=== PATIENT | male | born 1980 | race Hispanic/Latino ===

== ENCOUNTER 2021-01-27 18:48 | Emergency (ER) | payer OTHER ==
[2021-01-27] MEDS ORDERED: IBUPROFEN 400 MG TAB ONE (21:04)
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
[2021-01-27 23:05] VITALS: BP 129/88; TEMP 97.9; O2SAT 99
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
== END 2021-01-27 23:00 | disposition home or self-care (01) ==
LOC: ER 18:48
DX: S16.1XXA Strain of muscle, fascia and tendon at neck level, initial encounter (principal); S80.02XA Contusion of left knee, initial encounter; S80.01XA Contusion of right knee, initial encounter; V49.40XA Driver injured in collision with unspecified motor vehicles in traffic accident, initial encounter
CPT/HCPCS: 70450; 71045; 72125; 99284